=== PATIENT | male | born 2005 | race Hispanic/Latino ===

== ENCOUNTER 2024-01-02 07:15 | Day surgery (SDC) | payer OTHER ==
[~2024-01-02] VITALS: Ht 167.6 cm; Wt 50.8 kg
[2024-01-02] VITALS (10 sets, daily range): BP systolic 96–112; BP diastolic 52–67; PULSE 61–74; RESP 14–20; TEMP 97.1–98.2
[2024-01-02] MEDS: 0.9%NACL 1000ML 1,000 ML IV ONE (09:00)
[2024-01-02] MEDS ORDERED: proPOFol 10 MG/ML 20ML VIAL IV ONE (09:55)
== END 2024-01-02 11:20 | disposition home or self-care (01) ==
LOC: DAH 07:15 → ENDO 07:15
PROVIDERS: ATTEND Internal Medicine
DX: K92.1 Melena (principal); K60.2 Anal fissure, unspecified; R12 Heartburn; Z79.899 Other long term (current) drug therapy
CPT/HCPCS: 45380; J7030 ×2; J2704; A4620; A4215; A4223; A7002; A4222; A4221; A4663; A4606; J3490